=== PATIENT | male | born 1945 | race Caucasian/White ===

== ENCOUNTER 2016-08-26 06:55 | Day surgery (SDC) | payer OTHER ==
--- NOTE | ~2016-08-26 | EGD ---
EGD REPORT [facility] [address] [address] NAME: LUDY WILCOX : [birth year] STATUS : REG [facility]#: [id number] AGE: 71 ADM/REG DATE : 08/26/16 MR#: [id number] REPORT SERV DATE: 08/26/16 DICTATED BY: MARGARET KONG DATE: 08/26/16 REPORT STATUS : Draft TRANSCRIBED BY: [employer] DATE: 08/26/16 [facility] Center Patient Name: Ludy Wilcox Date of : 1945 Attending MD: MARGARET KONG MD Procedure Date No Time: 08/26/2016 Procedure: Colonoscopy Indications: High risk colon cancer surveillance: Personal history of colonic polyps Referring MD: EMILIANO OSBORN MD Medicines: as per anesthesia Complications: No immediate complications. Procedure: After I obtained informed consent, the scope was passed under direct vision. Throughout the procedure, the patient's blood pressure, pulse, and oxygen saturations were monitored continuously. The PCF [id number] was introduced through the anus and advanced to the cecum, identified by appendiceal orifice and ileocecal valve. The colonoscopy was performed without difficulty. The patient tolerated the procedure. The quality of the bowel preparation was adequate to identify polyps. Findings: The perianal and digital rectal examinations were normal. Two sessile polyps were found in the ascending colon. The polyps were 3 to 4 mm in size. These polyps were removed with a cold biopsy forceps. Resection and retrieval were complete. Multiple medium-sized angiodysplastic lesions without bleeding were found in the ascending colon and in the cecum. A few small and large-mouthed diverticula were found in the sigmoid colon and in the descending colon. Internal hemorrhoids were found during endoscopy and were mild. Impression: - Two 3 to 4 mm polyps in the ascending colon. Resected and retrieved. - Multiple non-bleeding colonic angiodysplastic lesions. - Diverticulosis in the sigmoid colon and in the descending colon. - Internal hemorrhoids. Recommendation: - Await pathology results. - Repeat colonoscopy for surveillance based on pathology results. Procedure Code(s): --- Professional --- EGD REPORT [address] [address] NAME: LUDY WILCOX : [birth year] [place] [facility] [id number] AGE: 71 ADM/REG DATE : 08/26/16 MR#: [id number] REPORT SERV DATE: 08/26/16 DICTATED BY: MARGARET KONG. DATE: 08/26/16 REPORT STATUS : Draft TRANSCRIBED BY: [employer] DATE: 08/26/16 [id number], Colonoscopy, flexible, proximal to splenic flexure; with biopsy, single or multiple Diagnosis Code(s): --- Professional --- D12.2, Benign neoplasm of ascending colon K55.20, Angiodysplasia of colon without hemorrhage K64.8, Other hemorrhoids K57.30, Diverticulosis of large intestine without perforation or abscess without bleeding Z86.010, Personal history of colonic polyps CPT copyright 2013 [employer]. All rights reserved. The codes documented in this report are preliminary and upon coder operator review may be revised to meet current compliance requirements. MARGARET KONG MD 08/26/2016 9:14 AM This report has been signed electronically. Number of Addenda: 0 Note Initiated On: 08/26/2016 8:42 AM Scope Withdrawal Time 0 hours 11 minutes 47 seconds [address] [place] [address]
[~2016-08-26 06:55] MED LIST: MAX25 PO
== END 2016-08-26 23:59 | disposition home or self-care (01) ==
LOC: DMU 06:55
PROVIDERS: Internal Medicine Gastroenterology
PROC: 0DBK8ZZ Excision of Ascending Colon, Via Natural or Artificial Opening Endoscopic (ICD-10-PCS; principal; 2016-08-26 08:30)
DX: Z12.11 Encounter for screening for malignant neoplasm of colon (principal); I10 Essential (primary) hypertension; D12.2 Benign neoplasm of ascending colon; K55.20 Angiodysplasia of colon without hemorrhage; K64.8 Other hemorrhoids; K57.30 Diverticulosis of large intestine without perforation or abscess without bleeding; Z86.010 Personal history of colon polyps; Z88.1 Allergy status to other antibiotic agents
CPT/HCPCS: 88305